=== PATIENT | female | born 1990 | race Caucasian/White ===

== ENCOUNTER 2020-03-30 15:20 | Emergency (ER) | payer OTHER ==
[~2020-03-30] VITALS: Ht 180.3 cm; Wt 64.4 kg
[2020-03-30 15:36] VITALS: Ht 180.3 cm; Wt 64.4 kg
[2020-03-30 16:12] VITALS: BP 108/75
== END 2020-03-30 16:12 | disposition home or self-care (01) ==
LOC: ED 15:20
DX: H60.92 Unspecified otitis externa, left ear (principal); K02.9 Dental caries, unspecified; G43.909 Migraine, unspecified, not intractable, without status migrainosus; Z87.442 Personal history of urinary calculi